=== PATIENT | male | born 1945 | race Caucasian/White ===

== ENCOUNTER 2018-07-13 08:21 | Observation (INO) | payer OTHER ==
[2018-07-13 08:34] VITALS: BMI 30.9
[2018-07-13] MEDS ORDERED: FAMOTIDINE 20 MG/50 ML IVPB 20 MG/50 ML MG IVPB ONE (09:48)
[2018-07-13] MEDS ORDERED: SODIUM CHLORIDE 0.9% 1000 ML INFUS.BAG IV ONE (09:48)
[2018-07-13] MEDS ORDERED: ONDANSETRON 4 MG/2 ML VIAL IVPUSH ONE (09:48)
--- NOTE | 2018-07-13 09:48 | PDOC ---
History of Present Illness <Estela Brown - Last Filed: 07/13/18 11:10> - General History Source: Patient Exam Limitations: No Limitations - History of Present Illness Initial Comments: 07/13/18 09:41 71-year-old male history of hypertension diabetes hyperlipidemia recently diagnosed with Lyme disease who started doxycycline in addition to 2 other antibiotics he can't remove her the name 2 days ago. Presents today with feeling lightheaded nausea episodes of dry heaving and lower intermittent abdominal pain. Patient states prior to starting doxycycline he did have symptoms of Lyme's disease consistent with body aches had a fever one week ago all of which had resolved except for some mild residual left hip pain. Patient also describes a headache feels that he has a headache behind his eyes is no longer having fevers denies any chest pain no shortness of breath no urinary symptoms no diarrhea patient states he was only able to eat a few bites of cereal this morning and that since we had multiple episodes of dry heaving called his primary doctor Dr. Hu who told him to come to the ED. cyndie [phone] 07/13/18 10:32 dr had started on atovquone, and azithromycin, and doxy. <Iris Nuñez - Last Filed: 07/13/18 12:56> - General Chief Complaint: Lightheaded Stated Complaint: NAUSEA, LIGHTHEADED Past History <KevinEstela - Last Filed: 07/13/18 11:10> - Past Medical History Anemia: No Asthma: No Cancer: No Cardiac Disorders: No CVA: No COPD: No CHF: No Dementia: No Diabetes: Yes GI Disorders: Yes (POLYPS) Disorders: No HTN: Yes Hypercholesterolemia: Yes Liver Disease: No Seizures: No Thyroid Disease: No - Surgical History Abdominal Surgery: Yes Appendectomy: No Cardiac Surgery: No Cholecystectomy: Yes Lung Surgery: No Neurologic Surgery: No Orthopedic Surgery: Yes (LEFT FOREARM SCREW, BICEP REPAIR) - Suicide/Smoking/Psychosocial Hx Smoking History: Former smoker Have you smoked in the past 12 months: No If you are a former smoker, when did you quit?: 1972 Information on smoking cessation initiated: No Hx Alcohol Use: No Drug/Substance Use Hx: No Substance Use Type: None Hx Substance Use Treatment: No <Iris Nuñez - Last Filed: 07/13/18 12:56> - Past Medical History Allergies/Adverse Reactions: Allergies Allergy/AdvReac Type Severity Reaction Status Date / Time No Known Allergies Allergy Verified 07/13/18 08:25 Home Medications: Ambulatory Orders Amlodipine Besylate [Norvasc -] 10 mg PO DAILY 07/13/18 Atorvastatin Calcium [Lipitor] 20 mg PO HS 07/13/18 Doxycycline Hyclate 0 mg PO BID 07/13/18 Glipizide [Glucotrol] 10 mg PO AC 07/13/18 Labetalol HCl [Normodyne -] 100 mg PO BID 07/13/18 Lisinopril [Prinivil -] 40 mg PO DAILY 07/13/18 Sitagliptin Phosphate [Januvia -] 100 mg PO DAILY@0700 07/13/18 Review of Systems - Review of Systems Constitutional: Yes: Fever. No: Chills, Diaphoresis HEENTM: No: Eye Pain Respiratory: No: Cough Cardiac (ROS): No: Chest Pain, Edema, Irregular Heart Rate ABD/GI: Yes: Nausea, Vomiting, Other (abdominal pain ). No: Constipated, Diarrhea : No: Burning, Dysuria, Discharge Musculoskeletal: Yes: Muscle Pain, Other (myalgia, resolving) Neurological: Yes: Headache All Other Systems: Reviewed and Negative <Iris Nuñez - Last Filed: 07/13/18 12:56> *Physical Exam - Vital Signs Last Vital Signs Temp Pulse Resp BP Pulse Ox 98.1 F 70 16 158/76 98 07/13/18 08:31 07/13/18 08:31 07/13/18 08:31 07/13/18 08:31 07/13/18 08:31 <Estela Brown - Last Filed: 07/13/18 11:10> - Vital Signs Last Vital Signs Temp Pulse Resp BP Pulse Ox 98.1 F 70 16 158/76 98 07/13/18 08:31 07/13/18 08:31 07/13/18 08:31 07/13/18 08:31 07/13/18 08:31 - Physical Exam Comments: 07/13/18 09:45 Awake alert no acute distress no photophobia dry mucous membranes noted. Lungs are clear bilaterally heart is regular without any murmurs rubs or gallops abdomen is soft nontender nondistended extremities are warm and well-perfused no edema appreciated. 2+ symmetric radial and DP pulses bilaterally. Neuro patient is awake alert oriented 3 moving all extremities skin is warm and dry no appreciated rash <Iris Nuñez - Last Filed: 07/13/18 12:56> Heart Score/ECG Review #1 General ECG Interpretation: Sinus Rhythm, Normal Rate (64), Normal Intervals, No acute ischemic changes (no st elevation or depression) <Iris Nuñez - Last Filed: 07/13/18 12:56> ED Treatment Course - LABORATORY CBC & Chemistry Diagram: 07/13/18 09:31 07/13/18 09:31 - ADDITIONAL ORDERS Additional order review: Laboratory Results 07/13/18 09:31 Sodium 134 L Potassium 5.9 H Chloride 106 Carbon Dioxide 18 L Anion Gap 10 BUN 38 H Creatinine 1.5 H Creat Clearance w eGFR 46.00 Random Glucose 229 H Calcium 9.2 Total Bilirubin 0.6 AST 31 ALT 47 Alkaline Phosphatase 215 H Creatine Kinase 95 Troponin I < 0.02 Total Protein 7.6 Albumin 3.4 07/13/18 09:31 RBC 3.47 L MCV 91.6 MCHC 35.1 RDW 13.2 MPV 8.2 Neutrophils % 78.8 Lymphocytes % 11.5 D Monocytes % 7.1 Eosinophils % 1.6 Basophils % 1.0 - Medications Given in the ED: ED Medications Discontinued Medications Generic Name Dose Route Start Last Admin Trade Name Freq PRN Reason Stop Dose Admin Acetaminophen 1,000 mg 07/13/18 10:38 07/13/18 10:42 Ofirmev Injection - IVPB 07/13/18 10:39 1,000 mg ONCE ONE Administration Famotidine/Sodium Chloride 20 mg in 50 mls @ 100 mls/hr 07/13/18 09:48 10:34 Pepcid 20 Mg Premixed Ivpb - IVPB 07/13/18 10:17 100 mls/hr ONCE ONE Administration Ondansetron HCl 4 mg 07/13/18 09:48 07/13/18 10:34 Zofran Injection IVPUSH 07/13/18 09:49 4 mg ONCE ONE Administration Sodium Chloride 1,000 ml 07/13/18 09:48 07/13/18 10:34 Normal Saline - IV 07/13/18 09:49 1,000 ml ONCE ONE Administration <Estela Brown - Last Filed: 07/13/18 11:10> - LABORATORY CBC & Chemistry Diagram: 07/13/18 09:31 07/13/18 10:50 <Iris Nuñez - Last Filed: 07/13/18 12:56> Medical Decision Making - Medical Decision Making 07/13/18 11:10 Dr. Castaneda was paged overhead. <Estela Brown - Last Filed: 07/13/18 11:10> - Medical Decision Making 07/13/18 09:46 73-year-old male history of diabetes hypertension and hyperlipidemia recently diagnosed Lyme disease here with persistent nausea vomiting and feeling lightheaded lower abdominal pain. nontender abd exam. Differential includes: intolerance of antibiotic regimen pancreatitis gastritis worsening renal failure dehydration central line is considered given patient's headache however majority of his symptoms are improving with antibiotics we will send CBC CMP obtain an EKG and troponin give gentle IV hydration will discuss with Dr. Leone. Regarding plan of care 07/13/18 10:39 Discussed with cyndie concern for patient being unable to tolerate po at home. We'll consider admission for observation infectious disease consult to assess the need for the 2 additional antibiotics besides doxycycline for possible coexisting eelichiosis or babesiosis. Patient's creatinine appears improved at 1.5 and is no longer anemic. Dr. Waterman suggests admission to Dr. Castaneda 07/13/18 11:15 pt with elevated potassium 5.9 repeat pending. ekg normal no st / t wave changes. pr normal. pt unable to tolerate po at home. will admit. d/w pa for dr. castaneda, will come evalutae pt. <Iris Nuñez - Last Filed: 07/13/18 12:56> *DC/Admit/Observation/Transfer <Estela Brown - Last Filed: 07/13/18 11:10> - Discharge Dispostion Decision to Admit order: Yes <Iris Nuñez - Last Filed: 07/13/18 12:56> Diagnosis at time of Disposition: Lyme disease, Dehydration, Hyperkalemia
--- NOTE | 2018-07-13 09:56 | EKG ---
Test Reason : Blood Pressure : / mmHG Vent. Rate : 064 BPM Atrial Rate : 064 BPM P-R Int : 150 ms QRS Dur : 092 ms QT Int : 402 ms P-R-T Axes : 039 048 036 degrees QTc Int : 414 ms NORMAL SINUS RHYTHM NORMAL ECG WHEN COMPARED WITH ECG OF 17-MAY-2016 20:20, RIGHT BUNDLE BRANCH BLOCK IS NO LONGER PRESENT Confirmed by ABDULKADIR GAVIRIA MD ([id number]) on 07/13/2018 9:56:36 AM Referred By: Confirmed By:ABDULKADIR GAVIRIA MD
[2018-07-13 10:04] LABS: EOS % 1.6 % (0-4.5); HEMATOCRIT 31.8 % (35.4-49); HEMOGLOBIN 11.2 GM/dL (11.7-16.9); LYMPH % 11.5 % (8-40); MCH 32.2 pg (25.7-33.7); MCHC 35.1 g/dl (32.0-35.9); MEAN CELL VOLUME 91.6 fl (80-96); MEAN PLT VOLUME 8.2 fl (7.5-11.1); MONO % 7.1 % (3.8-10.2); NEUT % 78.8 % (42.8-82.8); PLATELET COUNT 395 K/MM3 (134-434); RBC 3.47 M/mm3 (4.00-5.60); RDW 13.2 % (11.9-15.9); WHITE BLOOD COUNT 6.8 K/mm3 (4.0-10.0)
[2018-07-13 10:18] LABS: ALBUMIN 3.4 g/dl (3.4-5.0); ANION GAP 10 MMOL/L (8-16); BILIRUBIN,TOTAL 0.6 mg/dL (0.2-1); BLOOD UREA NITROGEN 38 mg/dL (7-18); CALCIUM 9.2 mg/dL (8.5-10.1); CHLORIDE 106 mmol/L (98-107); CO2 18 mmol/L (21-32); CREATININE 1.5 mg/dL (0.55-1.3); GLUCOSE,RANDOM 229 mg/dL (74-106); SGPT/ALT 47 U/L (13-61); SODIUM 134 mmol/L (136-145); TOT PROT 7.6 g/dl (6.4-8.2)
[2018-07-13 10:21] LABS: ALK PHOS 215 U/L (45-117)
[2018-07-13 10:25] LABS: POTASSIUM 5.9 mmol/L (3.5-5.1); SGOT/AST 31 U/L (15-37)
[2018-07-13] MEDS ORDERED: ACETAMINOPHEN 1000 MG/100 ML VIAL (NON FORMULARY) IVPB ONE (10:38)
[2018-07-13] MEDS ORDERED: ACETAMINOPHEN INJECTION 100 ML IVPB ONE (10:39)
[2018-07-13 12:32] LABS: URINE APPEARANCE CLEAR; URINE BILIRUBIN NEGATIVE (<2.0 mg/dL); URINE COLOR YELLOW; URINE GLUCOSE (UA) 2+ (NEGATIVE); URINE KETONE NEGATIVE (NEGATIVE); URINE LEUK ESTERASE NEGATIVE (NEGATIVE); URINE NITRITE NEGATIVE (NEGATIVE); URINE UROBILINOGEN NEGATIVE mg/dL (0.2-1.0)
[2018-07-13 12:35] LABS: URINE PROTEIN 1+ (NEGATIVE)
[2018-07-13 12:39] LABS: EPI CELLS RARE /HPF (FEW)
[2018-07-13] MEDS ORDERED: SODIUM POLYSTYRENE SULFONATE 15 GM/60 ML BOTTLE PO ONE ×2 (12:56→16:48)
[2018-07-13] MEDS ORDERED: ONDANSETRON 4 MG/2 ML VIAL IVPUSH PRN (12:59)
[2018-07-13] MEDS ORDERED: SODIUM POLYSTYRENE SULFONATE 15 GM/60 ML BOTTLE ONE (13:02)
--- NOTE | 2018-07-13 13:02 | HP ---
Admitting History and Physical - Primary Care Physician PCP: Ysabel Solano - Admission Chief Complaint: n/v History of Present Illness: is a 73 year old male who comes in with worsening nausea, vomiting, lightheadedness since this am. Pt reports he was diagnosed of lyme disease 2 days ago by PCP and was started on atovquone, and azithromycin, and doxycycline. Pt was noted to have macular abd/back rash in the office. Pt reports this morning, he was nauseous, vomited non bloody emesis x 1, and felt lightheaded. He reports constipation x 4 days, usually has BM daily. Prior to diagnosis, he's been having generalized body aches, fevers, headache, dry cough , anorexia and back pain. He reports feeling better initially after starting medications. Recent travel to [place], [place], [place] x 3 weeks in April. Pt denies any chest pain, sob, abdominal pain, diarrhea, rash, chills, or unilateral weakness. History Source: Patient Limitations to Obtaining History: Poor Historian - Past Medical History Cardiovascular: Yes: HTN, Hyperlipdemia Renal/: Yes: Renal Inusuff Musculoskeletal: Yes: Osteoarthritis Endocrine: Yes: Diabetes Mellitus - Past Surgical History Past Surgical History: Yes: Cholecystectomy Additional Past Surgical History: Bicep tear repair surgery cataract surgery- L eye - Smoking History Smoking history: Former smoker Have you smoked in the past 12 months: No If you are a former smoker, when did you quit?: 1972 - Alcohol/Substance Use Hx Alcohol Use: No History of Substance Use: reports: None - Social History Usual Living Arrangement: Yes: With Spouse ADL: Independent History of Recent Travel: Yes (April- [facility], [place], [place] ) Home Medications - Allergies Allergies/Adverse Reactions: Allergies Allergy/AdvReac Type Severity Reaction Status Date / Time No Known Allergies Allergy Verified 07/13/18 08:25 - Home Medications Home Medications: Ambulatory Orders Amlodipine Besylate [Norvasc -] 10 mg PO DAILY 07/13/18 Atorvastatin Calcium [Lipitor] 20 mg PO HS 07/13/18 Doxycycline Hyclate 0 mg PO BID 07/13/18 Glipizide [Glucotrol] 10 mg PO AC 07/13/18 Labetalol HCl [Normodyne -] 100 mg PO BID 07/13/18 Lisinopril [Prinivil -] 40 mg PO DAILY 07/13/18 Sitagliptin Phosphate [Januvia -] 100 mg PO DAILY@0700 07/13/18 Family Disease History - Family Disease History Family Disease History: Diabetes: Mother, Sister (copd, stroke), Respiratory: Father (COPD), Sister Review of Systems Findings/Remarks: as per hpi Physical Examination Vital Signs: Vital Signs Temperature 98.1 F 07/13/18 08:31 Pulse Rate 70 07/13/18 08:31 Respiratory Rate 16 07/13/18 08:31 Blood Pressure 158/76 07/13/18 08:31 O2 Sat by Pulse Oximetry (%) 98 07/13/18 08:31 Labs: CBC, BMP 07/13/18 09:31 07/13/18 10:50 Imaging - Results Chest X-ray: Report Reviewed (unremarkable) Problem List - Problems (1) Lyme disease Assessment/Plan: +lyme titer outpt started tx by pcp 2 days ago no rash seen, afebrile here presents today w/ n/v, poor po intake, constipation elevated alk phos Abd CT negative babesia smear ordered, pcr pending clindamycin IV hold atovaquone, azithromycin ID consult appreciated Code(s): A69.20 - LYME DISEASE, UNSPECIFIED (2) Nausea & vomiting Assessment/Plan: abd/pelvic ct neg abd exam benign possibly 2/2 antibx zofran prn, monitor Code(s): R11.2 - NAUSEA WITH VOMITING, UNSPECIFIED (3) Alkaline phosphatase elevation Assessment/Plan: as above chronic, monitor Code(s): R74.8 - ABNORMAL LEVELS OF OTHER SERUM ENZYMES (4) JHONATHAN (acute kidney injury) Assessment/Plan: pre renal, bun elevation 2/2 poor po intake IVF Code(s): N17.9 - ACUTE KIDNEY FAILURE, UNSPECIFIED (5) CKD (chronic kidney disease) Assessment/Plan: appears improved since 07/10 baseline cr 1.7 per outpt records IVF monitor Code(s): N18.9 - CHRONIC KIDNEY DISEASE, UNSPECIFIED Qualifiers: Chronic kidney disease stage: stage 3 (moderate) Qualified Code(s): N18.3 - Chronic kidney disease, stage 3 (moderate) (6) Hyperkalemia Assessment/Plan: no ekg changes s/p kayexalate monitor bmp hold loida/arb Code(s): E87.5 - HYPERKALEMIA (7) Dehydration Assessment/Plan: 2/2 poor po intake, n/v IVF encourage po intake monitor Code(s): E86.0 - DEHYDRATION (8) Constipation Assessment/Plan: suspect 2/2 dehydration monitor, ivf , kayexalate Code(s): K59.00 - CONSTIPATION, UNSPECIFIED (9) HLD (hyperlipidemia) Assessment/Plan: stable continue statin Code(s): E78.5 - HYPERLIPIDEMIA, UNSPECIFIED (10) Diabetes mellitus Assessment/Plan: recently uncontrolled per outpt records +glycosuria, +proteinuria BGM Insulin sliding scale januvia/glipizide monitor Code(s): E11.9 - TYPE 2 DIABETES MELLITUS WITHOUT COMPLICATIONS Qualifiers: Diabetes mellitus type: type 2 Diabetes mellitus chcf insulin use: without distillery laborer use Diabetes mellitus complication status: with kidney complications Diabetes mellitus complication detail: with chronic kidney disease Chronic kidney disease stage: stage 3 (moderate) Qualified Code(s): E11.22 - Type 2 diabetes mellitus with diabetic chronic kidney disease; N18.3 - Chronic kidney disease, stage 3 (moderate)
[2018-07-13] MEDS: SODIUM CHLORIDE 1,000 ML IV SCH (13:24)
[2018-07-13] MEDS ORDERED: ALBUTEROL SO4 8 GM HFA INHALER IH PRN (16:29)
[2018-07-13] MEDS ORDERED: LABETALOL HCL 100 MG TABLET (FP) PO ONE (16:40)
--- NOTE | 2018-07-13 16:41 | PN ---
Progress Note (short form) - Note Progress Note: ID Consult dictated + Lyme serology R/O tick-related co-infection ( Anaplasma/Babesia) Obtain Babesia smear Await Anaplasma/ Babesia PCR Continue doxycycline Hold zithromax/ atovaquone
--- NOTE | 2018-07-13 17:36 | CONS ---
INFECTIOUS DISEASE CONSULTATION DATE OF CONSULTATION: 07/13/2018 The patient is a 73-year-old, diabetic, hypertensive male evaluated for suspected tick-related illness. Patient states that he was well until Tuesday, July 03, 2018. His told him that he did not appear well and had tactile fever. He had presented to his primary care physician on July 06. At which time, he was evaluated. He was sent for blood work. The patient was subsequently found to have a positive Lyme titer. His symptoms consisted of subjective fever, body ache including left hip and back pain, headache, and dry cough. On examination in the physician's office, he was noted to have a macular rash on his back and abdomen. He continued to complain of nausea, lightheadedness, some retching. He had anorexia and insomnia. He developed worsening body ache, fever, and headache. He was referred to the emergency room where he was evaluated. He was afebrile with a normal white blood cell count. His alkaline phosphatase was elevated. He had been feeling well previously. He traveled to [place] in April, spending approximately 3 weeks in [place], [place], and [place]. He was well at that time. Upon his return, he had no recent febrile illness. He denied any tick exposure. However, he does walk his dog in grassy areas. Of note, he was hospitalized at [facility] in April 2016, when a tick was removed from his right [place]. That tick tested positive for Ixodes scapularis. However, Lyme serology was negative. He received a 2-week course of doxycycline. He denies any chest pain. He does have a dry cough. No urinary tract symptoms. PAST MEDICAL HISTORY: Positive for hypertension, hyperlipidemia, diabetes mellitus. PAST SURGICAL HISTORY: Status post cholecystectomy. ALLERGIES: No known allergies. MEDICATIONS: Norvasc, Lipitor, Glucotrol, Normodyne, lisinopril, Januvia. SOCIAL HISTORY: Lives at home with his . Travel history as mentioned. Former smoker. No history of alcohol abuse or substance abuse. SYSTEMS REVIEW: Neurologic: No loss of consciousness, seizure activity, focal weakness. Cardiac: Negative chest pain or palpitations. Respiratory: As per HPI. Gastrointestinal: As per HPI. Genitourinary: Negative for urinary tract infection. LABORATORY DATA: White count 6.8; neutrophils 78, lymphocytes 11, monocytes 7. BUN 38, creatinine 1.5. Alkaline phosphatase 215, AST 31, ALT 47, total bilirubin 0.6. Urinalysis: White cells 1. Chest x-ray: Negative for acute pathology. Cultures are pending. PHYSICAL EXAMINATION: General: He is awake and alert, supine in bed. He is not acutely toxic appearing, appears comfortable. Vital Signs: Temperature 97.8; blood pressure 155/73; pulse 78, regular; respirations 18 per minute. HEENT: Sclerae are anicteric. Heart: Sounds S1, S2. No murmur. Lungs: Clear. Abdomen: Obese, soft. No tenderness. No palpable liver or spleen. Extremities: Negative for edema. No rash is noted. IMPRESSION: 1. Positive Lyme serology, rule out Lyme disease. 2. Rule out tick-related co-infection (anaplasma/babesia). Obtain babesia smear. Await anaplasma and babesia PCR. Will continue doxycycline intravenously. Will hold Zithromax and atovaquone. Case discussed with patient's primary care physician. Will follow. Thank you for the kind referral. BROWN MAYES M.D. DIANNA/[id number]
[2018-07-13] MEDS: DOXYCYCLINE INJECTION 100 MG in DEXTROSE 5%-WATER - 100 ML IVPB SCH (22:18)
[2018-07-13] MEDS: LABETALOL HCL 100 MG TABLET (FP) PO SCH (22:18)
[2018-07-13] MEDS: INSULIN SLIDING SCALE (NOVOLOG) 1 VIAL SQ SCH (22:28)
[2018-07-14] MEDS ORDERED: glipiZIDE 5 MG TABLET (FP) ONE (05:47)
[2018-07-14] MEDS: INSULIN SLIDING SCALE (NOVOLOG) 1 VIAL SQ SCH ×4 (06:17→21:18)
[2018-07-14] MEDS: sitaGLIPtin PHOSPHATE 100 MG TABLET (FP) PO SCH (06:18)
[2018-07-14] MEDS: glipiZIDE 10 MG TABLET (FP) PO SCH (06:18)
[2018-07-14 06:47] LABS: BASO % 0.7 % (0-2.0); EOS % 1.4 % (0-4.5); HEMATOCRIT 29.9 % (35.4-49); HEMOGLOBIN 10.3 GM/dL (11.7-16.9); LYMPH % 14.2 % (8-40); MCH 31.5 pg (25.7-33.7); MCHC 34.5 g/dl (32.0-35.9); MEAN CELL VOLUME 91.2 fl (80-96); MEAN PLT VOLUME 7.5 fl (7.5-11.1); MONO % 9.9 % (3.8-10.2); NEUT % 73.8 % (42.8-82.8); PLATELET COUNT 384 K/MM3 (134-434); RBC 3.28 M/mm3 (4.00-5.60); RDW 13.1 % (11.9-15.9)
[2018-07-14 07:48] LABS: ALBUMIN 3.1 g/dl (3.4-5.0); ALK PHOS 185 U/L (45-117); ANION GAP 6 MMOL/L (8-16); BILIRUBIN,TOTAL 0.4 mg/dL (0.2-1); BLOOD UREA NITROGEN 25 mg/dL (7-18); CALCIUM 8.7 mg/dL (8.5-10.1); CHLORIDE 106 mmol/L (98-107); CO2 24 mmol/L (21-32); CREATININE 1.3 mg/dL (0.55-1.3); GLUCOSE,RANDOM 198 mg/dL (74-106); PHOSPHOROUS 3.5 mg/dL (2.5-4.9); POTASSIUM 4.8 mmol/L (3.5-5.1); SGOT/AST 21 U/L (15-37); SGPT/ALT 45 U/L (13-61); SODIUM 135 mmol/L (136-145)
[2018-07-14] MEDS: oxyCODONE HCL 5 MG TABLET PO PRN (08:30)
[2018-07-14] MEDS ORDERED: PT OWN MED DRAWER 7, Y5N ONE (08:59)
[2018-07-14] MEDS: LACTOBACILLUS ACIDOPHILUS 1 TABLET PO SCH (09:04)
[2018-07-14] MEDS: LABETALOL HCL 100 MG TABLET (FP) PO SCH ×2 (09:04→21:19)
[2018-07-14] MEDS: DOXYCYCLINE INJECTION 100 MG in DEXTROSE 5%-WATER - 100 ML IVPB SCH (09:05)
[2018-07-14] MEDS: amLODIPine BESYLATE 10 MG TABLET (FP) PO SCH (10:14)
[2018-07-14] MEDS: LISINOPRIL 20 MG TABLET (FP) PO SCH (10:14)
[2018-07-14] MEDS: SODIUM CHLORIDE 1,000 ML IV SCH (13:00)
--- NOTE | 2018-07-14 13:10 | PN ---
Progress Note, Physician Chief Complaint: Pt lying in bed in no acute distress. Reports feeling better. However continues to have mild nausea, vomited after lunch per pt. Denies any chest pain, sob, diarrhea - Current Medication List Current Medications: Active Medications Albuterol Sulfate (Ventolin Hfa Inhaler -) 2 puff IH Q4H PRN PRN Reason: SHORT OF BREATH/WHEEZING Amlodipine Besylate (Norvasc -) 10 mg PO DAILY [facility] Last Admin: 07/14/18 10:14 Dose: 10 mg Glipizide (Glucotrol -) 10 mg PO DAILY@0700 [facility] Last Admin: 07/14/18 06:18 Dose: 10 mg Doxycycline Hyclate 100 mg/ (Dextrose) 100 mls @ 100 mls/hr IVPB BID [facility] Last Admin: 07/14/18 09:05 Dose: 100 mls/hr Insulin Aspart (Novolog Vial Sliding Scale -) 1 vial SQ ACHS [facility]; Protocol Last Admin: 07/14/18 11:30 Dose: 4 units Labetalol HCl (Normodyne -) 100 mg PO BID [facility] Last Admin: 07/14/18 09:04 Dose: 100 mg Lactobacillus Acidophilus (Bacid -) 1 tab PO DAILY [facility] Last Admin: 07/14/18 09:04 Dose: 1 tab Lisinopril (Prinivil) 40 mg PO DAILY [facility] Last Admin: 07/14/18 10:14 Dose: 40 mg Ondansetron HCl (Zofran Injection) 4 mg IVPUSH Q6H PRN PRN Reason: NAUSEA Oxycodone HCl (Roxicodone -) 5 mg PO Q6H PRN PRN Reason: PAIN LEVEL 7 - 10 Last Admin: 07/14/18 08:30 Dose: 5 mg Sitagliptin Phosphate (Januvia -) 100 mg PO DAILY@0700 [facility] Last Admin: 07/14/18 06:18 Dose: 100 mg - Objective Vital Signs: Vital Signs Temperature 97.8 F 07/14/18 06:00 Pulse Rate 60 07/14/18 06:00 Respiratory Rate 18 07/14/18 06:00 Blood Pressure 148/73 07/14/18 06:00 O2 Sat by Pulse Oximetry (%) 98 07/13/18 21:00 Constitutional: Yes: Well Nourished, No Distress Cardiovascular: Yes: WNL, Regular Rate and Rhythm. No: Gallop, Murmur Respiratory: Yes: WNL, Regular, CTA Bilaterally. No: Accessory Muscle Use, Tachypnea, Wheezes Gastrointestinal: Yes: WNL, Normal Bowel Sounds, Soft. No: Distention, Tenderness Genitourinary: Yes: WNL Musculoskeletal: Yes: WNL Edema: No Neurological: Yes: WNL, Alert, Oriented Psychiatric: Yes: WNL, Alert, Oriented Labs: CBC, BMP 07/14/18 06:00 07/14/18 06:00 Problem List - Problems (1) Lyme disease Code(s): A69.20 - LYME DISEASE, UNSPECIFIED (2) Nausea & vomiting Code(s): R11.2 - NAUSEA WITH VOMITING, UNSPECIFIED (3) Alkaline phosphatase elevation Code(s): R74.8 - ABNORMAL LEVELS OF OTHER SERUM ENZYMES (4) JHONATHAN (acute kidney injury) Code(s): N17.9 - ACUTE KIDNEY FAILURE, UNSPECIFIED (5) CKD (chronic kidney disease) Code(s): N18.9 - CHRONIC KIDNEY DISEASE, UNSPECIFIED Qualifiers: Chronic kidney disease stage: stage 3 (moderate) Qualified Code(s): N18.3 - Chronic kidney disease, stage 3 (moderate) (6) Hyperkalemia Code(s): E87.5 - HYPERKALEMIA (7) Dehydration Code(s): E86.0 - DEHYDRATION (8) Constipation Code(s): K59.00 - CONSTIPATION, UNSPECIFIED (9) HLD (hyperlipidemia) Code(s): E78.5 - HYPERLIPIDEMIA, UNSPECIFIED (10) Diabetes mellitus Code(s): E11.9 - TYPE 2 DIABETES MELLITUS WITHOUT COMPLICATIONS Qualifiers: Diabetes mellitus type: type 2 Diabetes mellitus termite control technician insulin use: without termite control technician use Diabetes mellitus complication status: with kidney complications Diabetes mellitus complication detail: with chronic kidney disease Chronic kidney disease stage: stage 3 (moderate) Qualified Code(s): E11.22 - Type 2 diabetes mellitus with diabetic chronic kidney disease; N18.3 - Chronic kidney disease, stage 3 (moderate) Assessment/Plan (1) Lyme disease Assessment/Plan: +lyme titer babesia/parasitic smear/blood cultures negative doxy PO transitioned ID following Code(s): A69.20 - LYME DISEASE, UNSPECIFIED (2) Nausea & vomiting Assessment/Plan: pt continues to have nausea, vomited today per pt abd/pelvic ct neg abd exam benign possibly 2/2 antibx zofran prn, monitor Code(s): R11.2 - NAUSEA WITH VOMITING, UNSPECIFIED (3) Alkaline phosphatase elevation Assessment/Plan: as above chronic, monitor Code(s): R74.8 - ABNORMAL LEVELS OF OTHER SERUM ENZYMES (4) JHONATHAN (acute kidney injury) Assessment/Plan: improved Code(s): N17.9 - ACUTE KIDNEY FAILURE, UNSPECIFIED (5) CKD (chronic kidney disease) Assessment/Plan: at baseline monitor Code(s): N18.9 - CHRONIC KIDNEY DISEASE, UNSPECIFIED Qualifiers: Chronic kidney disease stage: stage 3 (moderate) Qualified Code(s): N18.3 - Chronic kidney disease, stage 3 (moderate) (6) Hyperkalemia Assessment/Plan: resolved Code(s): E87.5 - HYPERKALEMIA (7) Dehydration Assessment/Plan: improved encourage po intake Code(s): E86.0 - DEHYDRATION (8) Constipation Assessment/Plan: resolved Code(s): K59.00 - CONSTIPATION, UNSPECIFIED (9) HLD (hyperlipidemia) Assessment/Plan: stable continue statin Code(s): E78.5 - HYPERLIPIDEMIA, UNSPECIFIED (10) Diabetes mellitus Assessment/Plan: bgs elevation suspect 2/2 acute infection BGM Insulin sliding scale januvia/glipizide outpt monitoring Code(s): E11.9 - TYPE 2 DIABETES MELLITUS WITHOUT COMPLICATIONS Qualifiers: Diabetes mellitus type: type 2 Diabetes mellitus termite control technician insulin use: without correction use Diabetes mellitus complication status: with kidney complications Diabetes mellitus complication detail: with chronic kidney disease Chronic kidney disease stage: stage 3 (moderate) Qualified Code(s): E11.22 - Type 2 diabetes mellitus with diabetic chronic kidney disease; N18.3 - Chronic kidney disease, stage 3 (moderate) Dispo: home tomorrow if tolerating po doxycycline. pt had n/v today, transitioned to po antibx later in the day.
--- NOTE | 2018-07-14 14:49 | PN ---
Progress Note, Physician History of Present Illness: Feeling better Hip and back pain better No fever WBC WNL Renal function improved Babesia smear/PCR (-) Anaplasma PCR (-) - Current Medication List Current Medications: Active Medications Albuterol Sulfate (Ventolin Hfa Inhaler -) 2 puff IH Q4H PRN PRN Reason: SHORT OF BREATH/WHEEZING Amlodipine Besylate (Norvasc -) 10 mg PO DAILY [facility] Last Admin: 07/14/18 10:14 Dose: 10 mg Glipizide (Glucotrol -) 10 mg PO DAILY@0700 [facility] Last Admin: 07/14/18 06:18 Dose: 10 mg Doxycycline Hyclate 100 mg/ (Dextrose) 100 mls @ 100 mls/hr IVPB BID [facility] Last Admin: 07/14/18 09:05 Dose: 100 mls/hr Insulin Aspart (Novolog Vial Sliding Scale -) 1 vial SQ ACHS [facility]; Protocol Last Admin: 07/14/18 11:30 Dose: 4 units Labetalol HCl (Normodyne -) 100 mg PO BID [facility] Last Admin: 07/14/18 09:04 Dose: 100 mg Lactobacillus Acidophilus (Bacid -) 1 tab PO DAILY [facility] Last Admin: 07/14/18 09:04 Dose: 1 tab Lisinopril (Prinivil) 40 mg PO DAILY [facility] Last Admin: 07/14/18 10:14 Dose: 40 mg Ondansetron HCl (Zofran Injection) 4 mg IVPUSH Q6H PRN PRN Reason: NAUSEA Oxycodone HCl (Roxicodone -) 5 mg PO Q6H PRN PRN Reason: PAIN LEVEL 7 - 10 Last Admin: 07/14/18 08:30 Dose: 5 mg Sitagliptin Phosphate (Januvia -) 100 mg PO DAILY@0700 [facility] Last Admin: 07/14/18 06:18 Dose: 100 mg - Objective Vital Signs: Vital Signs Temperature 98.3 F 07/14/18 10:00 Pulse Rate 65 07/14/18 10:00 Respiratory Rate 18 07/14/18 10:00 Blood Pressure 144/63 07/14/18 10:00 O2 Sat by Pulse Oximetry (%) 99 07/14/18 09:00 Constitutional: Yes: No Distress Eyes: Yes: Conjunctiva Clear Cardiovascular: Yes: Regular Rate and Rhythm, S1, S2 Respiratory: Yes: CTA Bilaterally Gastrointestinal: Yes: Normal Bowel Sounds, Soft. No: Tenderness Edema: No Labs: CBC, BMP 07/14/18 06:00 07/14/18 06:00 Assessment/Plan Lyme disease Dehydration/ azotemia- resolved Substitute po doxycycline Complete 21d course
[2018-07-14] MEDS ORDERED: ONDANSETRON *ODT* 4 MG TABLET SL PRN (16:14)
[2018-07-14] MEDS: DOXYCYCLINE HYCLATE 100 MG CAPSULE PO SCH (16:59)
[2018-07-14] MEDS ORDERED: INSULIN (NOVOLOG) ASPART 100 UNITS/ML 10ML VIAL ONE (20:52)
[2018-07-15] MEDS ORDERED: glipiZIDE 5 MG TABLET (FP) ONE (05:46)
[2018-07-15] MEDS: sitaGLIPtin PHOSPHATE 100 MG TABLET (FP) PO SCH (06:08)
[2018-07-15] MEDS: glipiZIDE 10 MG TABLET (FP) PO SCH (06:08)
[2018-07-15] MEDS: INSULIN SLIDING SCALE (NOVOLOG) 1 VIAL SQ SCH ×4 (06:08→21:19)
[2018-07-15] MEDS: oxyCODONE HCL 5 MG TABLET PO PRN (07:24)
[2018-07-15] MEDS ORDERED: PT OWN MED DRAWER 7, Y5N ONE ×2 (09:15→17:08)
[2018-07-15] MEDS: LACTOBACILLUS ACIDOPHILUS 1 TABLET PO SCH (09:18)
[2018-07-15] MEDS: LISINOPRIL 20 MG TABLET (FP) PO SCH (09:19)
[2018-07-15] MEDS: DOXYCYCLINE HYCLATE 100 MG CAPSULE PO SCH ×2 (09:19→17:12)
[2018-07-15] MEDS: LABETALOL HCL 100 MG TABLET (FP) PO SCH ×2 (09:19→21:16)
[2018-07-15] MEDS: amLODIPine BESYLATE 10 MG TABLET (FP) PO SCH (09:19)
--- NOTE | 2018-07-15 12:21 | PN ---
Progress Note, Physician Chief Complaint: Patient c/o Binocular Diplopia images super impose in vertical axis worsened with upward gaze and while sitting, also c/o mild Rt ocular pain no lacrimation or redness. - Current Medication List Current Medications: Active Medications Albuterol Sulfate (Ventolin Hfa Inhaler -) 2 puff IH Q4H PRN PRN Reason: SHORT OF BREATH/WHEEZING Amlodipine Besylate (Norvasc -) 10 mg PO DAILY [facility] Last Admin: 07/15/18 09:19 Dose: 10 mg Doxycycline Hyclate (Vibramycin -) 100 mg PO BID@1000,1800 [facility] Last Admin: 07/15/18 09:19 Dose: 100 mg Glipizide (Glucotrol -) 10 mg PO DAILY@0700 [facility] Last Admin: 07/15/18 06:08 Dose: 10 mg Insulin Aspart (Novolog Vial Sliding Scale -) 1 vial SQ [facility]; Protocol Last Admin: 07/15/18 12:02 Dose: 4 units Labetalol HCl (Normodyne -) 100 mg PO BID [facility] Last Admin: 07/15/18 09:19 Dose: 100 mg Lactobacillus Acidophilus (Bacid -) 1 tab PO DAILY [facility] Last Admin: 07/15/18 09:18 Dose: 1 tab Lisinopril (Prinivil) 40 mg PO DAILY [facility] Last Admin: 07/15/18 09:19 Dose: 40 mg Ondansetron HCl (Zofran Odt -) 4 mg SL Q6H PRN PRN Reason: NAUSEA AND/OR VOMITING Last Admin: 07/14/18 16:59 Dose: 4 mg Oxycodone HCl (Roxicodone -) 5 mg PO Q6H PRN PRN Reason: PAIN LEVEL 7 - 10 Last Admin: 07/15/18 07:24 Dose: 5 mg Sitagliptin Phosphate (Januvia -) 100 mg PO DAILY@0700 [facility] Last Admin: 07/15/18 06:08 Dose: 100 mg - Objective Vital Signs: Vital Signs Temperature 97.8 F 07/15/18 10:00 Pulse Rate 60 07/15/18 10:00 Respiratory Rate 18 07/15/18 10:00 Blood Pressure 134/70 07/15/18 10:00 O2 Sat by Pulse Oximetry (%) 96 07/15/18 09:00 Elderly man comfortable HEENT: Mm moist, sclera and conjunctiva Clear normally reactive pupils no Nystagmus in Lateral gaze C/O Binocular displopia Rt eye on upward gaze NECK; no JVd No Bruit CHEST: CTA B/L CVS: S1S2 R ABD: obese, non tender, BS + EXT: No edema feet, no calf tenderness, Pulses _+ HOSPITAL WELLNESS COORDINATOR: Aox3 Cranial Nerve: No facial asymmetry Rt sided Upward gaze Diplopia Binocular 5th , 7th, 8th 9 to 12 are normal No Motor Sensory Deficit No Cerebellar signs. Labs: CBC, BMP 07/14/18 06:00 07/14/18 06:00 Problem List - Problems (1) Lyme disease Assessment/Plan: Now vertical gaze diplopia inconsistent Binocular/ Rt field concerned extraocular or opthamic N involvement will Consult ID, Neurology and Ophthalmology on PO Doxycycline. Code(s): A69.20 - LYME DISEASE, UNSPECIFIED (2) JHONATHAN (acute kidney injury) Assessment/Plan: CKD satge 3 admitted with JHONATHAN now resolved Code(s): N17.9 - ACUTE KIDNEY FAILURE, UNSPECIFIED (3) Dehydration Assessment/Plan: Resoved BMP at base line Code(s): E86.0 - DEHYDRATION (4) HTN (hypertension) Assessment/Plan: Well controlled cont current management Code(s): I10 - ESSENTIAL (PRIMARY) HYPERTENSION (5) Nausea & vomiting Assessment/Plan: Improved tolerating PO Code(s): R11.2 - NAUSEA WITH VOMITING, UNSPECIFIED (6) T2DM (type 2 diabetes mellitus) Assessment/Plan: optimize Glycemic control cont current management. Code(s): E11.9 - TYPE 2 DIABETES MELLITUS WITHOUT COMPLICATIONS (7) Diplopia Assessment/Plan: Binocular Diplopia Rt visual field images super impose in vertical direction Left eye s/p Cataract surgery Rt eye cataract, schedule for surgery in Sep 2018 can be due to different density and of Left implanted lens and Rt eye cataract, considering Lyme needs evaluation by Neurology and ophthalmology consult. Code(s): H53.2 - DIPLOPIA
[2018-07-16] MEDS ORDERED: glipiZIDE 5 MG TABLET (FP) ONE (05:59)
[2018-07-16] MEDS: sitaGLIPtin PHOSPHATE 100 MG TABLET (FP) PO SCH (06:10)
[2018-07-16] MEDS: glipiZIDE 10 MG TABLET (FP) PO SCH (06:10)
[2018-07-16] MEDS: INSULIN SLIDING SCALE (NOVOLOG) 1 VIAL SQ SCH ×4 (06:11→21:16)
[2018-07-16 07:46] LABS: BASO % 1.2 % (0-2.0); EOS % 2.8 % (0-4.5); HEMATOCRIT 31.1 % (35.4-49); HEMOGLOBIN 10.9 GM/dL (11.7-16.9); MCHC 35.2 g/dl (32.0-35.9); MEAN CELL VOLUME 90.8 fl (80-96); MEAN PLT VOLUME 7.2 fl (7.5-11.1); MONO % 11.6 % (3.8-10.2); NEUT % 64.4 % (42.8-82.8); PLATELET COUNT 383 K/MM3 (134-434); RBC 3.42 M/mm3 (4.00-5.60); RDW 12.7 % (11.9-15.9); WHITE BLOOD COUNT 5.6 K/mm3 (4.0-10.0)
[2018-07-16 09:00] LABS: ALBUMIN 3.2 g/dl (3.4-5.0); ALK PHOS 175 U/L (45-117); ANION GAP 7 MMOL/L (8-16); BILIRUBIN,TOTAL 0.5 mg/dL (0.2-1); BLOOD UREA NITROGEN 22 mg/dL (7-18); CHLORIDE 103 mmol/L (98-107); CO2 24 mmol/L (21-32); CREATININE 1.5 mg/dL (0.55-1.3); GLUCOSE,RANDOM 159 mg/dL (74-106); POTASSIUM 4.4 mmol/L (3.5-5.1); SGOT/AST 26 U/L (15-37); SGPT/ALT 47 U/L (13-61); SODIUM 135 mmol/L (136-145); TOT PROT 6.9 g/dl (6.4-8.2)
[2018-07-16] MEDS: DOXYCYCLINE HYCLATE 100 MG CAPSULE PO SCH ×2 (10:11→17:02)
[2018-07-16] MEDS: LISINOPRIL 20 MG TABLET (FP) PO SCH (10:11)
[2018-07-16] MEDS: LACTOBACILLUS ACIDOPHILUS 1 TABLET PO SCH (10:11)
[2018-07-16] MEDS: amLODIPine BESYLATE 10 MG TABLET (FP) PO SCH (10:11)
[2018-07-16] MEDS: LABETALOL HCL 100 MG TABLET (FP) PO SCH ×2 (10:11→21:16)
--- NOTE | 2018-07-16 11:57 | PN ---
Progress Note, Physician Chief Complaint: Still c/o Rt field Diplopia in Vertical axis - Current Medication List Current Medications: Active Medications Albuterol Sulfate (Ventolin Hfa Inhaler -) 2 puff IH Q4H PRN PRN Reason: SHORT OF BREATH/WHEEZING Amlodipine Besylate (Norvasc -) 10 mg PO DAILY [facility] Last Admin: 07/16/18 10:11 Dose: 10 mg Doxycycline Hyclate (Vibramycin -) 100 mg PO BID@1000,1800 [facility] Last Admin: 07/16/18 10:11 Dose: 100 mg Glipizide (Glucotrol -) 10 mg PO DAILY@0700 [facility] Last Admin: 07/16/18 06:10 Dose: 10 mg Insulin Aspart (Novolog Vial Sliding Scale -) 1 vial SQ ACHS [facility]; Protocol Last Admin: 07/16/18 06:11 Dose: 2 units Labetalol HCl (Normodyne -) 100 mg PO BID [facility] Last Admin: 07/16/18 10:11 Dose: 100 mg Lactobacillus Acidophilus (Bacid -) 1 tab PO DAILY [facility] Last Admin: 07/16/18 10:11 Dose: 1 tab Lisinopril (Prinivil) 40 mg PO DAILY [facility] Last Admin: 07/16/18 10:11 Dose: 40 mg Ondansetron HCl (Zofran Odt -) 4 mg SL Q6H PRN PRN Reason: NAUSEA AND/OR VOMITING Last Admin: 07/14/18 16:59 Dose: 4 mg Oxycodone HCl (Roxicodone -) 5 mg PO Q6H PRN PRN Reason: PAIN LEVEL 7 - 10 Last Admin: 07/15/18 07:24 Dose: 5 mg Sitagliptin Phosphate (Januvia -) 100 mg PO DAILY@0700 [facility] Last Admin: 07/16/18 06:10 Dose: 100 mg - Objective Vital Signs: Vital Signs Temperature 98.4 F 07/16/18 08:59 Pulse Rate 58 L 07/16/18 08:59 Respiratory Rate 18 07/16/18 08:59 Blood Pressure 144/68 07/16/18 08:59 O2 Sat by Pulse Oximetry (%) 99 07/16/18 08:59 Elderly man comfortable HEENT: Mm moist, sclera and conjunctiva Clear normally reactive pupils no Nystagmus in Lateral gaze C/O Binocular displopia Rt eye on upward gaze NECK; no JVd No Bruit CHEST: CTA B/L CVS: S1S2 R ABD: obese, non tender, BS + EXT: No edema feet, no calf tenderness, Pulses _+ MOLD INSERT CHANGER: Aox3 Cranial Nerve: No facial asymmetry Rt sided Upward gaze Diplopia Binocular 5th , 7th, 8th 9 to 12 are normal No Motor Sensory Deficit No Cerebellar signs. Labs: CBC, BMP 07/16/18 06:00 07/16/18 06:00 Problem List - Problems (1) Lyme disease Assessment/Plan: Now vertical gaze diplopia inconsistent Binocular/ Rt field concerned extraocular or opthamic N involvement will Consult ID, Neurology and Ophthalmology on PO Doxycycline. Code(s): A69.20 - LYME DISEASE, UNSPECIFIED (2) JHONATHAN (acute kidney injury) Assessment/Plan: CKD satge 3 admitted with JHONATHAN now resolved Code(s): N17.9 - ACUTE KIDNEY FAILURE, UNSPECIFIED (3) Dehydration Assessment/Plan: Resoved BMP at base line Code(s): E86.0 - DEHYDRATION (4) HTN (hypertension) Assessment/Plan: Well controlled cont current management Code(s): I10 - ESSENTIAL (PRIMARY) HYPERTENSION (5) Nausea & vomiting Assessment/Plan: Improved tolerating PO Code(s): R11.2 - NAUSEA WITH VOMITING, UNSPECIFIED (6) T2DM (type 2 diabetes mellitus) Assessment/Plan: optimize Glycemic control cont current management. Code(s): E11.9 - TYPE 2 DIABETES MELLITUS WITHOUT COMPLICATIONS (7) Diplopia Assessment/Plan: Binocular Diplopia Rt visual field images super impose in vertical direction Left eye s/p Cataract surgery Rt eye cataract, schedule for surgery in Sep 2018 can be due to different density and of Left implanted lens and Rt eye cataract, considering Lyme awaiting evaluation by Neurology and ophthalmology consult. Code(s): H53.2 - DIPLOPIA
[2018-07-16] MEDS ORDERED: INSULIN (NOVOLOG) ASPART 100 UNITS/ML 10ML VIAL ONE (21:08)
[2018-07-17] MEDS ORDERED: glipiZIDE 5 MG TABLET (FP) ONE (06:40)
[2018-07-17] MEDS: glipiZIDE 10 MG TABLET (FP) PO SCH (06:42)
[2018-07-17] MEDS: INSULIN SLIDING SCALE (NOVOLOG) 1 VIAL SQ SCH ×4 (06:42→22:09)
[2018-07-17] MEDS: sitaGLIPtin PHOSPHATE 100 MG TABLET (FP) PO SCH (06:42)
[2018-07-17 07:06] LABS: BASO % 1.4 % (0-2.0); EOS % 2.1 % (0-4.5); HEMATOCRIT 32.3 % (35.4-49); HEMOGLOBIN 11.4 GM/dL (11.7-16.9); LYMPH % 21.8 % (8-40); MCH 31.6 pg (25.7-33.7); MCHC 35.2 g/dl (32.0-35.9); MEAN CELL VOLUME 89.9 fl (80-96); MEAN PLT VOLUME 7.2 fl (7.5-11.1); MONO % 11.8 % (3.8-10.2); NEUT % 62.9 % (42.8-82.8); PLATELET COUNT 397 K/MM3 (134-434); RDW 12.9 % (11.9-15.9); WHITE BLOOD COUNT 6.3 K/mm3 (4.0-10.0)
[2018-07-17 07:08] LABS: ANION GAP 8 MMOL/L (8-16); BLOOD UREA NITROGEN 23 mg/dL (7-18); CALCIUM 9.1 mg/dL (8.5-10.1); CHLORIDE 104 mmol/L (98-107); CO2 24 mmol/L (21-32); CREATININE 1.5 mg/dL (0.55-1.3); GLUCOSE,RANDOM 146 mg/dL (74-106); POTASSIUM 4.6 mmol/L (3.5-5.1); SODIUM 135 mmol/L (136-145)
--- NOTE | 2018-07-17 09:16 | CONSULT ---
Consult - text type - Consultation Consultation Note: Neurology History of Present Illness: 73 year old male presented with worsening nausea, vomiting, lightheadedness, diagnosed with lyme disease 2 days ago by PCP and was started on atovquone, and azithromycin, and doxycycline. Found to have rash in abdominal/flank. Addtionally, constitutional symptoms including nausea, vomiting, generalized body aches, fevers, headache, dry cough, anorexia and back pain. He reported feeling better initially after starting medications. Admitted for further mgmt and over weekend noted to have diplopia, therefore consulted for further mgmt. He has vertical diplopia extinguishes on upward and rightward gaze. OF note, does have DM which can cause diplopia. Optho also consulted. Discussed with patient to have imaging and confirm no structural abnormality, patient in agreement. - Past Medical History Cardiovascular: Yes: HTN, Hyperlipdemia Renal/: Yes: Renal Inusuff Musculoskeletal: Yes: Osteoarthritis Endocrine: Yes: Diabetes Mellitus - Past Surgical History Past Surgical History: Yes: Cholecystectomy Additional Past Surgical History: Bicep tear repair surgery cataract surgery- L eye - Smoking History Smoking history: Former smoker Have you smoked in the past 12 months: No If you are a former smoker, when did you quit?: 1972 - Alcohol/Substance Use Hx Alcohol Use: No History of Substance Use: reports: None - Social History Usual Living Arrangement: Yes: With Spouse ADL: Independent History of Recent Travel: Yes (April- [place], [place], [place] ) Home Medications - Allergies Allergies/Adverse Reactions: Allergies Allergy/AdvReac Type Severity Reaction Status Date / Time No Known Allergies Allergy Verified 07/13/18 08:25 - Home Medications Home Medications: Ambulatory Orders Amlodipine Besylate [Norvasc -] 10 mg PO DAILY 07/13/18 Atorvastatin Calcium [Lipitor] 20 mg PO HS 07/13/18 Doxycycline Hyclate 0 mg PO BID 07/13/18 Glipizide [Glucotrol] 10 mg PO AC 07/13/18 Labetalol HCl [Normodyne -] 100 mg PO BID 07/13/18 Lisinopril [Prinivil -] 40 mg PO DAILY 07/13/18 Sitagliptin Phosphate [Januvia -] 100 mg PO DAILY@0700 07/13/18 Family Disease History - Family Disease History Family Disease History: Diabetes: Mother, Sister (copd, stroke), Respiratory: Father (COPD), Sister Review of Systems Findings/Remarks: Constitutional: Yes: Well Nourished, No Distress Cardiovascular: Yes: WNL, Regular Rate and Rhythm. No: Gallop, Murmur Respiratory: Yes: WNL, Regular, CTA Bilaterally. No: Accessory Muscle Use, Tachypnea, Wheezes Gastrointestinal: Yes: WNL, Normal Bowel Sounds, Soft. No: Distention, Tenderness Genitourinary: Yes: WNL Musculoskeletal: Yes: WNL Edema: No Neurological: Yes: WNL, Alert, Oriented Psychiatric: Yes: WNL, Alert, Oriented Physical Examination Vital Signs: Vital Signs Temperature 98.1 F 07/13/18 08:31 Pulse Rate 70 07/13/18 08:31 Respiratory Rate 16 07/13/18 08:31 Blood Pressure 158/76 07/13/18 08:31 O2 Sat by Pulse Oximetry (%) 98 07/13/18 08:31 Gen: Awake, alert, responds to questions Card: RRR, nml S1,S2 Resp: Normal symmetric effort, lungs clear to auscultation Abdomen: Soft, nontender, bowel sounds active Musculoskeletal: Adequate range of motion without significant deformity Head atraumatic and normocephalic CN: PERRL, EOMI intact, Diplopia on forward gaze, extinguish on rightward and upward, no apparent facial droop, no abnormalities in facial sensation, palate elevates, uvula and tongue midline Motor: Full strength to confrontation in upper and lower extermities proximally and distally. Tone normal throughout Sensory: Intact to Temperature, light touch, and pinprick in all extremities Reflexes: 2+ biceps, brachioradialis, patellar, achillies Coordination: Intact on [id number] testing CBCD WBC 6.3 K/mm3 (4.0-10.0) 07/17/18 06:00 RBC 3.60 M/mm3 (4.00-5.60) L 07/17/18 06:00 Hgb 11.4 GM/dL (11.7-16.9) L 07/17/18 06:00 Hct 32.3 % (35.4-49) L 07/17/18 06:00 MCV 89.9 fl (80-96) 07/17/18 06:00 MCHC 35.2 g/dl (32.0-35.9) 07/17/18 06:00 RDW 12.9 % (11.9-15.9) 07/17/18 06:00 Plt Count 397 K/MM3 (134-434) 07/17/18 06:00 MPV 7.2 fl (7.5-11.1) L 07/17/18 06:00 CMP Sodium 135 mmol/L (136-145) L 07/17/18 06:00 Potassium 4.6 mmol/L (3.5-5.1) 07/17/18 06:00 Chloride 104 mmol/L (98-107) 07/17/18 06:00 Carbon Dioxide 24 mmol/L (21-32) 07/17/18 06:00 Anion Gap 8 MMOL/L (8-16) 07/17/18 06:00 BUN 23 mg/dL (7-18) H 07/17/18 06:00 Creatinine 1.5 mg/dL (0.55-1.3) H 07/17/18 06:00 Creat Clearance w eGFR 46.00 (>60) 07/17/18 06:00 Random Glucose 146 mg/dL (74-106) H 07/17/18 06:00 Calcium 9.1 mg/dL (8.5-10.1) 07/17/18 06:00 Total Bilirubin 0.5 mg/dL (0.2-1) 07/16/18 06:00 AST 26 U/L (15-37) 07/16/18 06:00 ALT 47 U/L (13-61) 07/16/18 06:00 Alkaline Phosphatase 175 U/L (45-117) H 07/16/18 06:00 Total Protein 6.9 g/dl (6.4-8.2) 07/16/18 06:00 Albumin 3.2 g/dl (3.4-5.0) L 07/16/18 06:00 CARDIAC ENZYMES Creatine Kinase 95 IU/L (26-308) 07/13/18 09:31 Troponin I < 0.02 ng/ml (0.00-0.05) 07/13/18 09:[address] reviewed Plan: 73 year old male presented with worsening nausea, vomiting, lightheadedness, diagnosed with lyme disease 2 days ago by PCP and was started on atovquone, and azithromycin, and doxycycline. Found to have rash in abdominal/flank. Addtionally, constitutional symptoms including nausea, vomiting, generalized body aches, fevers, headache, dry cough, anorexia and back pain. He reported feeling better initially after starting medications. Admitted for further mgmt and over weekend noted to have diplopia, therefore consulted for further mgmt. He has vertical diplopia extinguishes on upward and rightward gaze. OF note, does have DM which can cause diplopia. Optho also consulted. Discussed with patient to have imaging and confirm no structural abnormality, patient in agreement. Continue mgmt for Lyme, continue hydration, supportive care, ID following. Monitor bp, maintain normotensive range. Continue DM mgmt, maintain euglycemic range.
[2018-07-17] MEDS ORDERED: PT OWN MED DRAWER 7, Y5N ONE ×2 (09:18→17:12)
[2018-07-17] MEDS: LISINOPRIL 20 MG TABLET (FP) PO SCH (09:20)
[2018-07-17] MEDS: LACTOBACILLUS ACIDOPHILUS 1 TABLET PO SCH (09:21)
[2018-07-17] MEDS: LABETALOL HCL 100 MG TABLET (FP) PO SCH ×2 (09:21→22:09)
[2018-07-17] MEDS: amLODIPine BESYLATE 10 MG TABLET (FP) PO SCH (09:22)
[2018-07-17] MEDS: DOXYCYCLINE HYCLATE 100 MG CAPSULE PO SCH ×2 (09:23→17:16)
--- NOTE | 2018-07-17 12:13 | PN ---
Progress Note, Physician Chief Complaint: Pt lying in bed in no acute distress. reports feeling well, tolerating diet. Denies any chest pain, sob, diarrhea - Current Medication List Current Medications: Active Medications Albuterol Sulfate (Ventolin Hfa Inhaler -) 2 puff IH Q4H PRN PRN Reason: SHORT OF BREATH/WHEEZING Amlodipine Besylate (Norvasc -) 10 mg PO DAILY [facility] Last Admin: 07/17/18 09:22 Dose: 10 mg Doxycycline Hyclate (Vibramycin -) 100 mg PO BID@1000,1800 [facility] Last Admin: 07/17/18 09:23 Dose: 100 mg Glipizide (Glucotrol -) 10 mg PO DAILY@0700 [facility] Last Admin: 07/17/18 06:42 Dose: 10 mg Insulin Aspart (Novolog Vial Sliding Scale -) 1 vial SQ ACHS [facility]; Protocol Last Admin: 07/17/18 11:40 Dose: Not Given Labetalol HCl (Normodyne -) 100 mg PO BID [facility] Last Admin: 07/17/18 09:21 Dose: 100 mg Lactobacillus Acidophilus (Bacid -) 1 tab PO DAILY [facility] Last Admin: 07/17/18 09:21 Dose: 1 tab Lisinopril (Prinivil) 40 mg PO DAILY [facility] Last Admin: 07/17/18 09:20 Dose: 40 mg Ondansetron HCl (Zofran Odt -) 4 mg SL Q6H PRN PRN Reason: NAUSEA AND/OR VOMITING Last Admin: 07/14/18 16:59 Dose: 4 mg Sitagliptin Phosphate (Januvia -) 100 mg PO DAILY@0700 [facility] Last Admin: 07/17/18 06:42 Dose: 100 mg - Objective Vital Signs: Vital Signs Temperature 98.2 F 07/17/18 05:40 Pulse Rate 61 07/17/18 05:40 Respiratory Rate 20 07/17/18 05:40 Blood Pressure 149/77 07/17/18 05:40 O2 Sat by Pulse Oximetry (%) 99 07/16/18 21:00 Constitutional: Yes: Well Nourished, No Distress Eyes: Yes: Diplopia Cardiovascular: Yes: WNL, Regular Rate and Rhythm. No: Murmur Respiratory: Yes: WNL, Regular, CTA Bilaterally. No: Accessory Muscle Use, SOB , Tachypnea, Wheezes Gastrointestinal: Yes: WNL, Normal Bowel Sounds, Soft. No: Distention, Tenderness Genitourinary: Yes: WNL Extremities: Yes: WNL Edema: No Neurological: Yes: WNL, Alert, Oriented Psychiatric: Yes: WNL, Alert, Oriented Labs: CBC, BMP 07/17/18 06:00 07/17/18 06:00 Problem List - Problems (1) Lyme disease Code(s): A69.20 - LYME DISEASE, UNSPECIFIED (2) Nausea & vomiting Code(s): R11.2 - NAUSEA WITH VOMITING, UNSPECIFIED (3) Alkaline phosphatase elevation Code(s): R74.8 - ABNORMAL LEVELS OF OTHER SERUM ENZYMES (4) JHONATHAN (acute kidney injury) Code(s): N17.9 - ACUTE KIDNEY FAILURE, UNSPECIFIED (5) CKD (chronic kidney disease) Code(s): N18.9 - CHRONIC KIDNEY DISEASE, UNSPECIFIED Qualifiers: Chronic kidney disease stage: stage 3 (moderate) Qualified Code(s): N18.3 - Chronic kidney disease, stage 3 (moderate) (6) Hyperkalemia Code(s): E87.5 - HYPERKALEMIA (7) Dehydration Code(s): E86.0 - DEHYDRATION (8) Constipation Code(s): K59.00 - CONSTIPATION, UNSPECIFIED (9) HLD (hyperlipidemia) Code(s): E78.5 - HYPERLIPIDEMIA, UNSPECIFIED (10) Diabetes mellitus Code(s): E11.9 - TYPE 2 DIABETES MELLITUS WITHOUT COMPLICATIONS Qualifiers: Diabetes mellitus type: type 2 Diabetes mellitus middle or intermediate school principal insulin use: without longterm use Diabetes mellitus complication status: with kidney complications Diabetes mellitus complication detail: with chronic kidney disease Chronic kidney disease stage: stage 3 (moderate) Qualified Code(s): E11.22 - Type 2 diabetes mellitus with diabetic chronic kidney disease; N18.3 - Chronic kidney disease, stage 3 (moderate) (11) Diplopia Code(s): H53.2 - DIPLOPIA Assessment/Plan (1) Lyme disease Assessment/Plan: +lyme titer babesia/parasitic smear/blood cultures negative doxy PO- 21 day course ID following Code(s): A69.20 - LYME DISEASE, UNSPECIFIED (2) Nausea & vomiting Assessment/Plan: resolved Code(s): R11.2 - NAUSEA WITH VOMITING, UNSPECIFIED (3) Alkaline phosphatase elevation Assessment/Plan: as above chronic, monitor Code(s): R74.8 - ABNORMAL LEVELS OF OTHER SERUM ENZYMES (4) JHONATHAN (acute kidney injury) Assessment/Plan: improved Code(s): N17.9 - ACUTE KIDNEY FAILURE, UNSPECIFIED (5) CKD (chronic kidney disease) Assessment/Plan: at baseline monitor Code(s): N18.9 - CHRONIC KIDNEY DISEASE, UNSPECIFIED Qualifiers: Chronic kidney disease stage: stage 3 (moderate) Qualified Code(s): N18.3 - Chronic kidney disease, stage 3 (moderate) (6) Hyperkalemia Assessment/Plan: resolved Code(s): E87.5 - HYPERKALEMIA (7) Dehydration Assessment/Plan: improved encourage po intake Code(s): E86.0 - DEHYDRATION (8) Constipation Assessment/Plan: resolved Code(s): K59.00 - CONSTIPATION, UNSPECIFIED (9) HLD (hyperlipidemia) Assessment/Plan: stable continue statin Code(s): E78.5 - HYPERLIPIDEMIA, UNSPECIFIED (10) Diabetes mellitus Assessment/Plan: stable BGM Insulin sliding scale januvia/glipizide outpt monitoring Code(s): E11.9 - TYPE 2 DIABETES MELLITUS WITHOUT COMPLICATIONS Qualifiers: Diabetes mellitus type: type 2 Diabetes mellitus middle or intermediate school principal insulin use: without middle or intermediate school principal use Diabetes mellitus complication status: with kidney complications Diabetes mellitus complication detail: with chronic kidney disease Chronic kidney disease stage: stage 3 (moderate) Qualified Code(s): E11.22 - Type 2 diabetes mellitus with diabetic chronic kidney disease; N18.3 - Chronic kidney disease, stage 3 (moderate) (11) Diplopia Assessment/Plan: vertical diplopia neuro consult appreciated MRI pending ophthalmology consult pending Code(s): H53.2 - DIPLOPIA Dispo: home, waiting MRI
[2018-07-18] MEDS ORDERED: glipiZIDE 5 MG TABLET (FP) ONE (05:59)
[2018-07-18] MEDS: INSULIN SLIDING SCALE (NOVOLOG) 1 VIAL SQ SCH ×2 (06:15→12:23)
[2018-07-18] MEDS: sitaGLIPtin PHOSPHATE 100 MG TABLET (FP) PO SCH (06:21)
[2018-07-18] MEDS: glipiZIDE 10 MG TABLET (FP) PO SCH (06:21)
--- NOTE | 2018-07-18 08:46 | PN ---
Progress Note (short form) - Note Progress Note: Neurology History of Present Illness: 73 year old male presented with worsening nausea, vomiting, lightheadedness, diagnosed with lyme disease 2 days ago by PCP and was started on atovquone, and azithromycin, and doxycycline. Found to have rash in abdominal/flank. Addtionally, constitutional symptoms including nausea, vomiting, generalized body aches, fevers, headache, dry cough, anorexia and back pain. He reported feeling better initially after starting medications. Admitted for further mgmt and over weekend noted to have diplopia, therefore consulted for further mgmt. He has vertical diplopia extinguishes on upward and rightward gaze. OF note, does have DM which can cause diplopia. MRI brain completed and reviewed, no acute changes. Microvascular disease noted, but otherwise no evidence of CVA, growths, demylination. Discussed with patient in detail. Optho consult recommended. - Allergies Allergies/Adverse Reactions: Allergies Allergy/AdvReac Type Severity Reaction Status Date / Time No Known Allergies Allergy Verified 07/13/18 08:25 Active Medications Albuterol Sulfate (Ventolin Hfa Inhaler -) 2 puff IH Q4H PRN PRN Reason: SHORT OF BREATH/WHEEZING Amlodipine Besylate (Norvasc -) 10 mg PO DAILY [facility] Last Admin: 07/17/18 09:22 Dose: 10 mg Doxycycline Hyclate (Vibramycin -) 100 mg PO BID@1000,1800 [facility] Last Admin: 07/17/18 17:16 Dose: 100 mg Glipizide (Glucotrol -) 10 mg PO DAILY@0700 [facility] Last Admin: 07/18/18 06:21 Dose: 10 mg Insulin Aspart (Novolog Vial Sliding Scale -) 1 vial SQ ACHS [facility]; Protocol Last Admin: 07/18/18 06:15 Dose: 2 units Labetalol HCl (Normodyne -) 100 mg PO BID [facility] Last Admin: 07/17/18 22:09 Dose: 100 mg Lactobacillus Acidophilus (Bacid -) 1 tab PO DAILY [facility] Last Admin: 07/17/18 09:21 Dose: 1 tab Lisinopril (Prinivil) 40 mg PO DAILY [facility] Last Admin: 07/17/18 09:20 Dose: 40 mg Ondansetron HCl (Zofran Odt -) 4 mg SL Q6H PRN PRN Reason: NAUSEA AND/OR VOMITING Last Admin: 07/14/18 16:59 Dose: 4 mg Sitagliptin Phosphate (Januvia -) 100 mg PO DAILY@0700 [place] Last Admin: 07/18/18 06:21 Dose: 100 mg Physical Examination Vital Signs: Vital Signs Period Temp Pulse Resp BP Sys/Jimenez Pulse Ox Last 24 Hr 97.7 F-98.8 F 57-95 16-18 115-150/62-83 99-99 Gen: Awake, alert, responds to questions Card: RRR, nml S1,S2 Resp: Normal symmetric effort, lungs clear to auscultation Abdomen: Soft, nontender, bowel sounds active Musculoskeletal: Adequate range of motion without significant deformity Head atraumatic and normocephalic CN: PERRL, EOMI intact, Diplopia on forward gaze, extinguish on rightward and upward, no apparent facial droop, no abnormalities in facial sensation, palate elevates, uvula and tongue midline Motor: Full strength to confrontation in upper and lower extermities proximally and distally. Tone normal throughout Sensory: Intact to Temperature, light touch, and pinprick in all extremities Reflexes: 2+ biceps, brachioradialis, patellar, achillies Coordination: Intact on [id number] testing CBCD WBC 6.3 K/mm3 (4.0-10.0) 07/17/18 06:00 RBC 3.60 M/mm3 (4.00-5.60) L 07/17/18 06:00 Hgb 11.4 GM/dL (11.7-16.9) L 07/17/18 06:00 Hct 32.3 % (35.4-49) L 07/17/18 06:00 MCV 89.9 fl (80-96) 07/17/18 06:00 MCHC 35.2 g/dl (32.0-35.9) 07/17/18 06:00 RDW 12.9 % (11.9-15.9) 07/17/18 06:00 Plt Count 397 K/MM3 (134-434) 07/17/18 06:00 MPV 7.2 fl (7.5-11.1) L 07/17/18 06:00 CMP Sodium 135 mmol/L (136-145) L 07/17/18 06:00 Potassium 4.6 mmol/L (3.5-5.1) 07/17/18 06:00 Chloride 104 mmol/L (98-107) 07/17/18 06:00 Carbon Dioxide 24 mmol/L (21-32) 07/17/18 06:00 Anion Gap 8 MMOL/L (8-16) 07/17/18 06:00 BUN 23 mg/dL (7-18) H 07/17/18 06:00 Creatinine 1.5 mg/dL (0.55-1.3) H 07/17/18 06:00 Creat Clearance w eGFR 46.00 (>60) 07/17/18 06:00 Random Glucose 146 mg/dL (74-106) H 07/17/18 06:00 Calcium 9.1 mg/dL (8.5-10.1) 07/17/18 06:00 Total Bilirubin 0.5 mg/dL (0.2-1) 07/16/18 06:00 AST 26 U/L (15-37) 07/16/18 06:00 ALT 47 U/L (13-61) 07/16/18 06:00 Alkaline Phosphatase 175 U/L (45-117) H 07/16/18 06:00 Total Protein 6.9 g/dl (6.4-8.2) 07/16/18 06:00 Albumin 3.2 g/dl (3.4-5.0) L 07/16/18 06:00 CARDIAC ENZYMES Creatine Kinase 95 IU/L (26-308) 07/13/18 09:31 Troponin I < 0.02 ng/ml (0.00-0.05) 07/13/18 09:[address] reviewed MRI brain reviewed Plan: 73 year old male presented with worsening nausea, vomiting, lightheadedness, diagnosed with lyme disease 2 days ago by PCP and was started on atovquone, and azithromycin, and doxycycline. Found to have rash in abdominal/flank. Addtionally, constitutional symptoms including nausea, vomiting, generalized body aches, fevers, headache, dry cough, anorexia and back pain. He reported feeling better initially after starting medications. Admitted for further mgmt and over weekend noted to have diplopia, therefore consulted for further mgmt. He has vertical diplopia extinguishes on upward and rightward gaze. OF note, does have DM which can cause diplopia. MRI brain completed and reviewed, no acute changes. Microvascular disease noted, but otherwise no evidence of CVA, growths, demylination. Discussed with patient in detail. Optho consult recommended. Continue mgmt for Lyme, continue hydration, supportive care. Monitor bp, maintain normotensive range. Continue DM mgmt, maintain euglycemic range.
[2018-07-18] MEDS ORDERED: PT OWN MED DRAWER 7, Y5N ONE (09:27)
[2018-07-18] MEDS: DOXYCYCLINE HYCLATE 100 MG CAPSULE PO SCH (09:29)
[2018-07-18] MEDS: LABETALOL HCL 100 MG TABLET (FP) PO SCH (09:29)
[2018-07-18] MEDS: amLODIPine BESYLATE 10 MG TABLET (FP) PO SCH (09:29)
[2018-07-18] MEDS: LACTOBACILLUS ACIDOPHILUS 1 TABLET PO SCH (09:29)
[2018-07-18] MEDS: LISINOPRIL 20 MG TABLET (FP) PO SCH (09:29)
--- NOTE | 2018-07-18 10:00 | DS ---
Physical Examination Vital Signs: Vital Signs Temperature 97.9 F 07/18/18 05:00 Pulse Rate 66 07/18/18 05:00 Respiratory Rate 16 07/18/18 05:00 Blood Pressure 115/62 07/18/18 05:00 O2 Sat by Pulse Oximetry (%) 99 07/17/18 21:00 Constitutional: Yes: Well Nourished, No Distress, Calm Eyes: Yes: Conjunctiva Clear, Diplopia HENT: Yes: Atraumatic Cardiovascular: Yes: Regular Rate and Rhythm. No: Murmur, Rub Respiratory: Yes: WNL, Regular, CTA Bilaterally. No: Accessory Muscle Use, Rales, Rhonchi, SOB, Tachypnea, Wheezes Gastrointestinal: Yes: WNL, Normal Bowel Sounds, Soft. No: Distention, Tenderness Renal/: Yes: WNL Musculoskeletal: Yes: Back Pain Edema: No Neurological: Yes: WNL, Alert, Oriented Psychiatric: Yes: WNL, Alert, Oriented Labs: CBC, BMP 07/17/18 06:00 07/17/18 06:00 Discharge Summary Reason For Visit: LYME DISEASE,DEHYDRATION,HYPERKALEMIA Current Active Problems Diplopia (Acute) Lyme disease (Acute) Alkaline phosphatase elevation (Chronic) CKD (chronic kidney disease) (Chronic) HLD (hyperlipidemia) (Chronic) HTN (hypertension) (Chronic) T2DM (type 2 diabetes mellitus) (Chronic) Hospital Course: is a 73 year old male who was admitted for nausea/vomiting, lightheadedness. Pt had positive lyme titer outpt, started on atovquone, and azithromycin, and doxycycline 2 days prior to admission. Pt found to be dehydrated 2/2 poor po intake, improved s/p IVF and resolution of N/V. Abdomen/ pelvic CT without acute pathology. Pt evaluted by ID, babesia/parasitic smear/ blood cultures negative and currently tolerating PO Doxycycline, continue for 14 more days to complete 21 day course. Pt developed binocular diplopia over the weekend, evaluated by Neurology. MRI negative. Ophthalmology aware and plan to see pt in the office upon discharge. Otherwise, pt reports feeling better, vitals stable, labs unremarkable. Pt is medically stable for discharge from the hospital. F/u as directed. 32 minutes spent in discharge planning Condition: Fair - Instructions Diet, Activity, Other Instructions: Antibx 14 more days, take with food ambulate as tolerated Ophthalmology f/u today f/u as directed Referrals: Rell Olvera MD [Staff Physician] - 07/18/18 Ysabel Solano MD [Primary Care Provider] - 1 Week Disposition: HOME - Home Medications Comprehensive Discharge Medication List: Ambulatory Orders Amlodipine Besylate [Norvasc -] 10 mg PO DAILY 07/13/18 Atorvastatin Calcium [Lipitor] 20 mg PO HS 07/13/18 Glipizide [Glucotrol] 10 mg PO AC 07/13/18 Labetalol HCl [Normodyne -] 100 mg PO BID 07/13/18 Lisinopril [Prinivil -] 40 mg PO DAILY 07/13/18 Sitagliptin Phosphate [Januvia -] 100 mg PO DAILY@0700 07/13/18 Doxycycline Hyclate [Vibramycin -] 100 mg PO BID@1000,1800 #28 capsule 07/18/18 Lactobacillus Acidophilus [Bacid -] 1 tab PO DAILY #14 tab 07/18/18
[2018-07-18 11:28] VITALS: BP 136/70; PULSE 63; TEMP 98
== END 2018-07-18 13:21 | disposition home or self-care (01) ==
LOC: JER 08:21 → JERBED 11:23 → J4S 15:38
PROVIDERS: ADMIT Internal Medicine; ATTEND Internal Medicine
PROC: 3E03329 Introduction of Other Anti-infective into Peripheral Vein, Percutaneous Approach (ICD-10-PCS; principal; 2018-07-13)
PROC: 3E033GC Introduction of Other Therapeutic Substance into Peripheral Vein, Percutaneous Approach (ICD-10-PCS; 2018-07-13)
PROC: 3E0337Z Introduction of Electrolytic and Water Balance Substance into Peripheral Vein, Percutaneous Approach (ICD-10-PCS; 2018-07-13)
PROC: 3E013VG Introduction of Insulin into Subcutaneous Tissue, Percutaneous Approach (ICD-10-PCS; 2018-07-13)
DX: A69.20 Lyme disease, unspecified (principal); E86.0 Dehydration; E87.5 Hyperkalemia; E78.5 Hyperlipidemia, unspecified; R11.2 Nausea with vomiting, unspecified; R74.8 Abnormal levels of other serum enzymes; E11.22 Type 2 diabetes mellitus with diabetic chronic kidney disease; I12.9 Hypertensive chronic kidney disease with stage 1 through stage 4 chronic kidney disease, or unspecified chronic kidney disease; N18.3 Chronic kidney disease, stage 3 (moderate); N17.9 Acute kidney failure, unspecified; Z79.84 Long term (current) use of oral hypoglycemic drugs; K59.00 Constipation, unspecified; H53.2 Diplopia; Z87.891 Personal history of nicotine dependence
CPT/HCPCS: 36415; 70551-TC; 71045-TC-FY; 74176-TC; 80048; 80053; 81003; 81015; 82550; 82962; 83605; 83690; 83735; 84100; 84132; 84484; 85025; 85651; 86140; 87040; 87207; 93005; 93010; 96365; 96372; 96375; 97116-GP; 97161-GP; 99283-25; G0378; J0131; J7030; Q0162

== ENCOUNTER 2020-11-14 04:22 | Day surgery (SDC) | payer OTHER ==
[2020-11-11 14:12] VITALS: BMI 36.3
[2020-11-14] MEDS ORDERED: LIDOCAINE HCL/PF 1% SDV 5ML VIAL ONE ×3 (10:51→13:19)
[2020-11-14] MEDS ORDERED: LIDOCAINE HCL 1% PRESERVATIVE FREE - 30ML VIAL IJ ONE (10:55)
[2020-11-14] MEDS ORDERED: BUPIVACAINE HCL/PF 0.75% 10 ML VIAL NR ONE (10:55)
[2020-11-14] MEDS ORDERED: IOHEXOL 180 MG/1 ML ML IJ ONE (10:55)
[2020-11-14 12:00] VITALS: BP 140/70; PULSE 68; TEMP 97.8
== END 2020-11-14 11:59 | disposition home or self-care (01) ==
LOC: JASU-SURG 04:22
PROVIDERS: ATTEND Pain Medicine Pain Medicine
PROC: 3E0T33Z Introduction of Anti-inflammatory into Peripheral Nerves and Plexi, Percutaneous Approach (ICD-10-PCS; 2020-11-14)
PROC: 3E0T3BZ Introduction of Anesthetic Agent into Peripheral Nerves and Plexi, Percutaneous Approach (ICD-10-PCS; principal; 2020-11-14 10:30)
DX: M47.816 Spondylosis without myelopathy or radiculopathy, lumbar region (principal)
CPT/HCPCS: 76000-TC-FY

== ENCOUNTER 2020-12-12 04:18 | Day surgery (SDC) | payer OTHER ==
[2020-12-09 13:23] VITALS: BMI 36.3
[2020-12-12] MEDS ORDERED: LIDOCAINE HCL 1%, 10 MG/ML (20ML VIAL) ONE (07:24)
[2020-12-12] MEDS ORDERED: DEXAMETHASONE SOD PHOSPHATE 4 MG/1 ML VIAL ONE (07:24)
[2020-12-12] MEDS ORDERED: DEXAMETHASONE SOD PHOSPHATE/PF 10 MG/ML SDV ONE (07:28)
[2020-12-12] MEDS ORDERED: LIDOCAINE HCL/PF 1% SDV 5ML VIAL ONE ×3 (07:28→07:32)
[2020-12-12] MEDS ORDERED: BUPIVACAINE HCL/PF 0.25% (2.5MG/ML) 10 ML VIAL ONE (07:29)
[2020-12-12] MEDS ORDERED: BUPIVACAINE HCL/PF 0.75% 10 ML VIAL ONE (07:44)
[2020-12-12] MEDS ORDERED: IOHEXOL 180 MG/1 ML ML IJ ONE (08:27)
[2020-12-12] MEDS ORDERED: BUPIVACAINE HCL/PF 0.75% 10 ML VIAL CAUD ONE (08:27)
[2020-12-12] MEDS ORDERED: LIDOCAINE 1% P/F 10 MG/ML VIAL INF ONE (08:30)
[2020-12-12 10:33] VITALS: BP 120/70; PULSE 70; TEMP 97.8
== END 2020-12-12 09:50 | disposition home or self-care (01) ==
LOC: JASU-SURG 04:18
PROVIDERS: ATTEND Pain Medicine Pain Medicine
PROC: BR16YZZ Fluoroscopy of Lumbar Facet Joint(s) using Other Contrast (ICD-10-PCS; 2020-12-12)
PROC: 3E0T3BZ Introduction of Anesthetic Agent into Peripheral Nerves and Plexi, Percutaneous Approach (ICD-10-PCS; principal; 2020-12-12 08:30)
DX: M47.816 Spondylosis without myelopathy or radiculopathy, lumbar region (principal)
CPT/HCPCS: 76000-TC-FY